=== PATIENT | female | born 1970 | race Caucasian/White ===

== ENCOUNTER 2016-07-20 12:18 | Emergency (ER) | payer BC ==
[2016-07-20 12:51] VITALS: BP 112/72
--- NOTE | 2016-07-20 13:09 | UC ---
Cardiac HPI - HPI Summary HPI Summary: PT WITH INTERMITTENT LEFT ANTERIOR CHEST PAIN FOR PAST 5 DAYS. HAS SOME ASSOCIATED PALPITATIONS. NO SOB, NAUSEA, SWEATS, DIZZINESS OR VISUAL DISTURBANCES. PAIN DOES NOT RADIATE. NOT WORSE WITH EXERTION. NOT PLEURITIC. DENIES ANY INJURY OR RECENT UNUSUAL PHYSICAL ACTIVITY. WORSE WHEN LAYING DOWN. TODAY HAS BEEN CONSTANT ALL MORNING. DRINKS 2 CUPS OF COFFEE IN THE MORNINGS. SLEEPING WELL BUT HAS BEEN FEELING UNUSUALLY TIRED. - History of Current Complaint Chief Complaint: UCChestPain Stated Complaint: CHEST PAIN Time Seen by Provider: 07/20/16 12:48 Hx Obtained From: Patient Onset/Duration: Sudden Onset, Lasting Days, Still Present Timing: Intermittent Episodes Lasting: Initial Severity: Moderate Current Severity: Moderate Pain Intensity: 5 Chest Pain Location: Left Anterior Character: Skipped Beats, Burning, Pressure/Squeezing - Allergy/Home Medications Allergies/Adverse Reactions: Allergies Allergy/AdvReac Type Severity Reaction Status Date / Time No Known Allergies Allergy Verified 07/20/16 12:43 Home Medications: Home Medications NK [No Home Medications Reported] 07/20/16 [History Confirmed 07/20/16] PMH/Surg Hx/FS Hx/Imm Hx Previously Healthy: Yes - Surgical History Surgical History: None - Family History Known Family History: Positive: Cardiac Disease - Social History Alcohol Use: Occasionally Substance Use Type: None Smoking Status (MU): Never Smoked Tobacco - Immunization History Most Recent Influenza Vaccination: None Most Recent Tetanus Shot: UNK Most Recent Pneumonia Vaccination: N/A Review of Systems Constitutional: Fatigue Skin: Negative Respiratory: Negative Cardiovascular: Chest Pain Gastrointestinal: Negative All Other Systems Reviewed And Are Negative: Yes Physical Exam Triage Information Reviewed: Yes Appearance: Well-Appearing, No Pain Distress, Well-Nourished Vital Signs: Initial Vital Signs Temp 99 F 07/20/16 12:44 Pulse 56 07/20/16 12:44 Resp 18 07/20/16 12:44 BP 112/72 07/20/16 12:44 Pulse Ox 100 07/20/16 12:44 Vital Signs Reviewed: Yes Eyes: Positive: Conjunctiva Clear ENT: Positive: Hearing grossly normal Neck: Positive: Supple, Nontender, No Lymphadenopathy Respiratory Exam: Normal Cardiovascular: Positive: Bradycardia Abdomen Description: Positive: Soft Musculoskeletal: Positive: No Edema Neurological: Positive: Alert Psychological: Positive: Age Appropriate Behavior Skin: Negative: rashes Diagnostics - EKG Cardiac Rate: Bradycardia - 55 BPM Cardiac Rhythm: Sinus: Normal Ectopy: None ST Segment: Normal - Assessment/Plan Course Of Treatment: ADVISED TRANSFER TO ER FOR CARDIAC EVALUATION. PT DECLINES. EXPLAINED RISK OF MA, RESPIRATORY DISTRESS, DECOMPENSATION INTO A DANGEROUS HEART RHYTHM AND . PT VERBALIZES UNDERSTANDING AND STILL DECLINES TRANSFER. SIGNED OUT AMA. - Differential Diagnoses - Chest Pain Differential Diagnosis/HQI/PQRI: ACS, Angina, Chest Wall, Pulmonary Embolism - Differential Diagnoses - Palpitations Differential Diagnosis/HQI/PQRI: Coronary Artery Disease, Hypokalemia, Paroxymal SVT, Pericarditis - Clinical Impression Provider Diagnoses: CHEST PAIN Discharge - Discharge Plan Condition: Stable Disposition: AGAINST MEDICAL ADVICE
== END 2016-07-20 13:30 | disposition left against medical advice (07) ==
LOC: UCEAST 12:18
DX: R07.9 Chest pain, unspecified (principal)
CPT/HCPCS: 93005; 99212; G0463

== ENCOUNTER 2017-12-27 14:28 | Emergency (ER) | payer BC, OTHER ==
[2017-12-27 16:19] VITALS: BP 112/74
--- NOTE | 2017-12-27 16:59 | ED ---
Neurological HPI - HPI Summary HPI Summary: Patient is a 47 y/o F w/ c/o "head feeling hot", vision changes onsetting today [employer]. She states she was in passenger seat in car when Sx onset. Episode is reported to have lasted seconds. She reports seeing colors. Sx resolved shortly afterwards. She notes that she felt "somewhat" near syncopal during the episode. Patient reports feeling nauseous after the episode. She denies FUNK at any time, no chest pain, no SOB, no palpitations, no numbness/weakness. In room , she reports feeling tired. PMHx of cardiac and neuro problems is denied. On triage, pain is denied, nothing is noted to aggravate/alleviate Sx, no treatment [employer] is reported. Home medications and allergies are reviewed. - History of Current Complaint Chief Complaint: EDNeurologicalDeficit Stated Complaint: DIZZINESS,BLURRED VISION Time Seen by Provider: 12/27/17 15:14 Hx Obtained From: Patient Onset/Duration: Still Present - patient states she feels tired in the room, Resolved - episode lasted a few seconds Timing: Intermittent Episodes Lasting: - seconds Current Severity: None - pain is denied Pain Intensity: 0 Pain Scale Used: 0-10 Numeric - 0/10 Character: Visual Changes, Other: - POSITIVE: reports feeling tired in the room , "somewhat" near syncopal, "head feeling hot", nausea after episode NEGATIVE: chest pain, SOB, palpitations, numbness, weakness, FUNK Aggravating: Nothing Alleviating: Nothing Associated Signs and Symptoms: Positive: Nausea/Vomiting - nausea. Negative: Headache, Weakness, Numbness, Chest Pain, Shortness of Breath, Palpitations - Allergy/Home Medications Allergies/Adverse Reactions: Allergies Allergy/AdvReac Type Severity Reaction Status Date / Time No Known Allergies Allergy Verified 12/27/17 16:19 PMH/Surg Hx/FS Hx/Imm Hx Sensory History: Denies: Hx Legally Blind, Hx Deafness Opthamlomology History: Denies: Hx Legally Blind EENT History: Denies: Hx Deafness Infectious Disease History: No Infectious Disease History: Denies: Traveled Outside the [place] in Last 30 Days - Family History Known Family History: Positive: Cardiac Disease - Social History Alcohol Use: Occasionally Substance Use Type: Reports: None Smoking Status (MU): Never Smoked Tobacco Review of Systems Positive: Fatigue - tired Negative: Palpitations, Chest Pain Negative: Shortness Of Breath Positive: Nausea Neurological: Other - POSITIVE: vision changes, "somewhat" near syncopal, head "feeling hot" Negative: Headache, Weakness, Numbness All Other Systems Reviewed And Are Negative: Yes Physical Exam - Summary Physical Exam Summary: Appearance: Well appearing, no pain distress Skin: warm, dry, reflects adequate perfusion Head/face: normal Eyes: EOMI, ANILA ENT: normal Neck: supple, non-tender Respiratory: CTA, breath sounds present Cardiovascular: RRR, pulses symmetrical Abdomen: non-tender, soft Bowel Sounds: present Musculoskeletal: normal, strength/ROM intact Neuro: normal, sensory motor intact, A&Ox3; no meningismus, no neck stiffness Triage Information Reviewed: Yes Vital Signs On Initial Exam: Initial Vitals Temp Pulse Resp BP Pulse Ox 97.8 F 66 16 143/85 100 12/27/17 14:33 12/27/17 14:33 12/27/17 14:33 12/27/17 14:33 12/27/17 14:33 Vital Signs Reviewed: Yes Diagnostics - Vital Signs Vital Signs Temp Pulse Resp BP Pulse Ox 12/27/17 16:18 98.2 F 55 16 112/74 100 12/27/17 14:33 97.8 F 66 16 143/85 100 - Laboratory Lab Statement: Any lab studies that have been ordered have been reviewed, and results considered in the medical decision making process. - EKG 1540 Cardiac Rate: Bradycardia - rate of 55 bpm EKG Rhythm: Sinus Bradycardia ST Segment: Normal EKG Interpretation: normal axis, normal intervals Re-Evaluation - Re-Evaluation First Eval Re-Evaluation Time: 16:11 Comment: Discussed results of EKG with patient; she will be discharged to home. Patient is agreeable with this plan. Course/Dx - Course Course Of Treatment: Patient presents neurologically intact after brief episode of visual aura without headache and perhaps a near syncopal feeling. She has fully recovered. EKG is normal and visual acuities are normal as well. No personal or family history for migraine syndrome. Discharged in good condition to follow up with primary care physician. - Differential Dx Differential Diagnoses Neuro: Positive: Other - Migraine with aura, visual disturbance, near syncope, palpitations, - Diagnoses Provider Diagnoses: Near syncope, Visual changes Discharge - Sign-Out/Discharge Documenting (check all that apply): Patient Departure - discharge - Discharge Plan Condition: Improved Disposition: HOME Patient Education Materials: Near Syncope (ED) Referrals: Kashmir Elliott MD [Medical Doctor] - Kylee Gutierrez MD [Primary Care Provider] - Additional Instructions: Stay well hydrated. Call your doctor today to schedule follow-up. If this continues she will need to have an MRI scan performed. See Dr. Elliott for complete visual exam. Return if worse, new symptoms or other concerns as discussed. Do not drive if you're having symptoms. - Billing Disposition and Condition Condition: IMPROVED Disposition: Home - Attestation Statements Document Initiated by Scribe: Yes Documenting Scribe: Harrison Fitzpatrick Provider For Whom Kenna is Documenting (Include Credential): Ancelmo Woodall MD Scribe Attestation: Harrison Chapman, scribed for Ancelmo Woodall MD on 12/27/17 at 1745. Scribe Documentation Reviewed: Yes Provider Attestation: The documentation as recorded by the Harrison lucio accurately reflects the service I personally performed and the decisions made by me, Ancelmo Woodall MD
== END 2017-12-27 16:18 | disposition home or self-care (01) ==
LOC: ED 14:28
DX: R55 Syncope and collapse (principal); H53.9 Unspecified visual disturbance; R00.1 Bradycardia, unspecified
CPT/HCPCS: 93005; 99282

== ENCOUNTER 2021-02-02 12:38 | Observation (INO) ==
[2021-02-02 13:37] LABS: ABS Basophils 0.1 10^3/ul (0-0.2); ABS Eosinophils 0.2 10^3/ul (0-0.6); ABS Lymphocytes 1.8 10^3/ul (1.0-4.8); ABS Monocytes 0.5 10^3/ul (0-0.8); ABS Neutrophils 5.6 10^3/ul (1.5-7.7); Eosinophil % 1.9 %; Hematocrit 42 % (35-47); Hemoglobin 14.6 g/dL (12.0-16.0); Lymphocyte % 22.3 %; Mean Corpuscular HGB Conc 35 g/dL (31-36); Mean Corpuscular Hemoglobin 32 pg (27-31); Mean Corpuscular Volume 93 fL (80-97); Mean Platelet Volume 7.2 fL (7.4-10.4); Platelet Count 269 10^3/uL (150-450); Red Blood Count 4.51 10^6 /uL (3.70-4.87); Red Cell Distribution Width 13 % (10-15); White Blood Count 8.1 10^3/uL (3.5-10.8)
[2021-02-02 13:51] LABS: INR 1.03 (0.86-1.15)
[2021-02-02 14:00] LABS: Troponin I 0.06 ng/mL (<0.03)
[2021-02-02 14:03] LABS: ALT 41 U/L (7-52); AST 31 U/L (13-39); Albumin 4.2 g/dL (3.2-5.2); Albumin/Globulin Ratio 1.5 (1-3); Alkaline Phosphatase 82 U/L (35-149); Anion Gap 7 mmol/L (2-11); Blood Urea Nitrogen 16 mg/dL (6-24); CO2 Carbon Dioxide 28 mmol/L (22-32); Calcium 9.5 mg/dL (8.6-10.3); Chloride 105 mmol/L (101-111); Globulin 2.8 g/dL (2-4); Glucose 100 mg/dL (70-100); Potassium 3.9 mmol/L (3.5-5.0); Sodium 140 mmol/L (135-145)
[2021-02-02 17:17] LABS: Troponin I 0.05 ng/mL (<0.03)
[2021-02-02 18:29] LABS: Activated Partial Thrombo Time 29.9 seconds (26.0-38.0)
[2021-02-02] MEDS ORDERED: Ondansetron 4 mg VIAL 2 MG/ML 2 ml VIAL IV PRN (19:44)
[2021-02-02] MEDS ORDERED: Al Hydrox/Mg Hydrox/Simet LIQ 30 ML UDC PO ONE (19:56)
[2021-02-02] MEDS ORDERED: Al Hydrox/Mg Hydrox/Simet LIQ 30 ML UDC PO PRN (19:56)
[2021-02-02 20:43] LABS: Cholesterol 198 mg/dL; HDL Cholesterol 90.2 mg/dL; LDL Cholesterol 86 mg/dL; Triglycerides 111 mg/dL
[2021-02-02 21:05] LABS: Rapid COVID-19 Molecular Undetected (Undetected)
[2021-02-02 23:36] LABS: Troponin I 0.05 ng/mL (<0.03)
[2021-02-03 07:13] LABS: ABS Basophils 0.1 10^3/ul (0-0.2); ABS Eosinophils 0.3 10^3/ul (0-0.6); ABS Lymphocytes 1.9 10^3/ul (1.0-4.8); ABS Monocytes 0.4 10^3/ul (0-0.8); ABS Neutrophils 2.7 10^3/ul (1.5-7.7); Eosinophil % 6.2 %; Hematocrit 39 % (35-47); Hemoglobin 13.7 g/dL (12.0-16.0); Lymphocyte % 34.8 %; Mean Corpuscular HGB Conc 35 g/dL (31-36); Mean Corpuscular Hemoglobin 32 pg (27-31); Mean Corpuscular Volume 93 fL (80-97); Mean Platelet Volume 7.4 fL (7.4-10.4); Platelet Count 245 10^3/uL (150-450); Red Blood Count 4.24 10^6 /uL (3.70-4.87); Red Cell Distribution Width 13 % (10-15); White Blood Count 5.4 10^3/uL (3.5-10.8)
[2021-02-03 07:33] LABS: Calcium 8.9 mg/dL (8.6-10.3)
[2021-02-03 16:21] VITALS: BP 152/71
== END 2021-02-03 16:58 | disposition home or self-care (01) ==
LOC: ED 12:38 → MEDTELE 12:38 → SUATTDRO 19:44 → MEDTELE 23:37
PROVIDERS: ADMIT Internal Medicine; ATTEND Hospitalist